=== PATIENT | male | born 1985 | race African-American/Black ===

== ENCOUNTER 2022-04-30 08:00 | Outpatient (CLI) | payer OTHER ==
[2022-04-30 22:02] LABS: CHLAMYDIA TRACHOMATIS DNA NEGATIVE (NEGATIVE); NEISSERIA GONORRHOEAE DNA NEGATIVE (NEGATIVE)
== END 2022-04-30 23:59 | disposition home or self-care (01) ==
LOC: LAB.N 08:00
PROVIDERS: ATTEND Nurse Practitioner
DX: N39.0 Urinary tract infection, site not specified (principal)
CPT/HCPCS: 87086; 87181; 87491; 87591; 87661